=== PATIENT | male | born 1950 | race Caucasian/White ===

== ENCOUNTER → 2021-09-22 11:39 | Outpatient (CLI) | payer MEDICARE, SELFPAY ==
--- NOTE | ~2021-09-22 | XR_ITS ---
EXAMINATION: XR lumbar spine 2-3V DATE: 09/22/2021 12:16 INDICATION: Low back pain. TECHNIQUE: 3 views of lumbar spine were obtained. COMPARISON: Lumbar spine radiographs 02/06/2017 FINDINGS: There is 4 degrees levocurvature of lumbar spine. Vertebral body heights are normal. There is mildly decreased disc height at L2-L3 and L3-L4. There is multilevel mild facet joint osteoarthrit is. IMPRESSION: 1. Mild lumbar spondylosis. Reviewed, dictated and finalized at location A. IANCE ADJUSTER IMPRESSION: 1. Mild lumbar spondylosis.
== END ==
PROVIDERS: PCP Family Medicine Adolescent Medicine; Visit Provider Family Medicine Adolescent Medicine
DX: M54.50 Low back pain, unspecified (principal); M47.816 Spondylosis without myelopathy or radiculopathy, lumbar region
CPT/HCPCS: 72100

== ENCOUNTER 2022-01-04 11:57 | Outpatient (CLI) | payer MEDICARE, SELFPAY ==
--- NOTE | ~2022-01-04 | CT_ITS ---
EXAMINATION: CT abdomen pelvis w con DATE: 01/04/2022 12:45 INDICATION: Prostate cancer. TECHNIQUE: Computed tomography (CT) of the abdomen and pelvis was performed with 100 mL Omnipaque 350 intravenous contrast. Automated exposure control and iterative reconstruction technique were employe d. The dose-length product was 285.93 mGy-cm. COMPARISON: None. FINDINGS: The visualized portions of the lung bases are clear without pneumonia or pleural effusion. The heart size is normal. No pericardial effusion. There is mild pectus excavatum. The liver, gallbla dder, spleen, pancreas, adrenal glands, and right kidney are normal. There is focal volume loss of le ft kidney. There is a 4.9 cm hyperdense mass in left kidney. There is a 3 mm stone in left kidney. Th ere is an umbilical hernia containing fat. There is a right inguinal hernia containing nonobstructed cecum. There is a left inguinal hernia containing nonobstructed sigmoid colon. There are no dilated l oops of bowel. The appendix is normal. There are no pathologically enlarged lymph nodes. There is no free intraperitoneal fluid. The prostate is moderately enlarged. There is moderate lumbar spondylosis . IMPRESSION: 1. No evidence of metastatic disease. 2. 4.9 cm hyperdense mass in left kidney, most likely renal cell carcinoma. Abdomen CT without and wi th contrast is recommended. 3. Right inguinal hernia containing nonobstructed cecum. 4. Left inguinal hernia containing nonobstructed sigmoid colon. Reviewed, dictated and finalized at location A. IMPRESSION: 1. No evidence of metastatic disease. 2. 4.9 cm hyperdense mass in left kidney, most likely renal cell carcinoma. Abd omen CT without and with contrast is recommended. 3. Right inguinal hernia containing nonobstructed cecum. 4. Left inguinal hernia containing nonobstructed sigmoid colon.
--- NOTE | ~2022-01-04 | XR_ITS ---
EXAMINATION: XR chest 2V 01/04/2022 12:23 INDICATION: Prostate cancer. PROCEDURE: 2 view chest COMPARISON: No prior studies for comparison. FINDINGS: The lungs are clear. The cardiomediastinal silhouette is within normal limits. There are no pleural effusions. There is no pneumothorax suspected. Mild dextroscoliosis of the thoracic spin e. Moderate thoracic spondylosis. IMPRESSION: 1: NO ACUTE CARDIOPULMONARY DISEASE. Reviewed, dictated and finalized at location B.
--- NOTE | ~2022-01-04 | NM_ITS ---
EXAMINATION: NM bone scan whole body DATE: 01/04/2022 16:04 INDICATION: Prostate cancer. TECHNIQUE: 24.2 mCi Tc-99m HDP was administered intravenously. Delayed whole-body scintigrams were o btained. COMPARISON: CT abdomen and pelvis 01/04/2022 FINDINGS: There is joint-centered increased activity in the acromioclavicular joints, sternoclavicula r joints, wrists, right hand, and feet without radiographic comparison, likely osteoarthritis. IMPRESSION: 1. No evidence of metastatic disease. Reviewed, dictated and finalized at location A.
[2022-01-04 12:34] LABS: Estimated Glomerular Filt Rate > 60
== END 2022-01-04 11:58 | disposition home or self-care (01) ==
LOC: ANHIMG 12:02
PROVIDERS: PCP Family Medicine Adolescent Medicine; Visit Provider Urology
DX: C61 Malignant neoplasm of prostate (principal); Q67.6 Pectus excavatum; N20.0 Calculus of kidney; K42.9 Umbilical hernia without obstruction or gangrene; K40.90 Unilateral inguinal hernia, without obstruction or gangrene, not specified as recurrent; M41.9 Scoliosis, unspecified; M47.815 Spondylosis without myelopathy or radiculopathy, thoracolumbar region
CPT/HCPCS: 71046; 74177; 78306; A9561; Q9967

== ENCOUNTER 2022-01-13 08:22 | Outpatient (CLI) | payer MEDICARE, SELFPAY ==
--- NOTE | ~2022-01-13 | CT_ITS ---
EXAMINATION: CT abdomen pelvis wo/w con DATE: 01/13/2022 08:48 INDICATION: Neoplasm of uncertain behavior of the left kidney TECHNIQUE: Computed tomography (CT) of the abdomen was performed without intravenous contrast. CT of the abdomen and pelvis was then performed with a total of 100 mL Omnipaque 350 intravenous contrast. The dose-length product (DLP) was 547.46 mGy-cm. Automated exposure control and iterative reconstruct ion technique were employed. COMPARISON: 01/04/2022 FINDINGS: The lung bases are clear. The heart size is normal. The liver, spleen, pancreas, gallbladde r, and adrenal glands are normal. There is a 4.9 cm enhancing mass of the left mid kidney. The mass p rojects into the renal hilum as well as the perirenal space. There is mass effect on calyces of the m id kidney. There is a 3 mm nonobstructing stone of the left kidney upper pole. The right kidney is un remarkable. No pathologically enlarged abdominal or pelvic lymph nodes are identified. There is no fr ee intraperitoneal gas or evidence of bowel obstruction. There is a left inguinal hernia containing a short segment of nonobstructed sigmoid colon. There is a right inguinal hernia which now contains fa t and the right anterolateral bladder wall. The appendix is normal. There is moderate lumbar spondylo sis. There is an umbilical hernia containing fat. IMPRESSION: 1. Left kidney mass consistent with renal cell carcinoma. 2. Bilateral inguinal hernias containing the anterolateral bladder wall on the right and short segmen t of nonobstructed sigmoid colon on the left. Reviewed, dictated and finalized at location B. IMPRESSION: 1. Left kidney mass consistent with renal cell carcinoma. 2. Bilateral inguinal hernias containing the anterolateral bladder wall on the right and short segment of nonobstructed sigmoid colon on the left.
== END 2022-01-13 08:23 | disposition home or self-care (01) ==
PROVIDERS: PCP Family Medicine Adolescent Medicine; Visit Provider Urology
DX: D41.02 Neoplasm of uncertain behavior of left kidney (principal); K40.20 Bilateral inguinal hernia, without obstruction or gangrene, not specified as recurrent
CPT/HCPCS: 74178; Q9967

== ENCOUNTER 2022-03-12 20:31 | Emergency (ER) | payer MEDICARE, SELFPAY ==
--- NOTE | ~2022-03-12 | CT_ITS ---
EXAMINATION: CTA chest PE abdomen pel DATE: 03/12/2022 23:14 INDICATION: shortness of breath TECHNIQUE: Computed tomography angiography (CTA) of the chest, abdomen, and pelvis was performed with 100 mL Omnipaque-350 intravenous contrast timed in the chest to evaluate the pulmonary arteries. Cor onal maximum intensity projection 3D-reconstructions were created by the technologist. The dose-lengt h product (DLP) was 901.77 mGy-cm. Automated exposure control and iterative reconstruction technique were employed. COMPARISON: None. FINDINGS: CTPA: Study quality: Motion limited in the left lower lobe, otherwise adequate. Pulmonary arteries: No pulmonary emboli detected. Thoracic aorta: Minimal atherosclerotic calcification. Lung parenchyma and airways: Bibasilar atelectasis. Thoracic inlet, axillae and chest wall: Unremarkable. Mediastinum: Normal. Heart and pericardium: Normal. Coronary artery calcifications: Mild. Pleura: Unremarkable. Thoracic bones: No acute osseous finding. ABDOMEN/PELVIS: Liver: Normal. Biliary/Gallbladder: Gallbladder is collapsed. No bile duct dilation. Pancreas: No mass or duct dilation. Spleen: Normal. Adrenals:No mass. Kidneys: Moderate left perinephric stranding. Nephrectomy defect. No active extravasation. Fluid fat and gas collection in the nephrectomy bed. GI tract: No small or large bowel dilation. Normal appendix. Mesentery/Peritoneum: Small volume free pelvic fluid. Small volume pneumoperitoneum. Retroperitoneum: No mass. Pelvis: Pelvic organs are within normal limits. Soft Tissues: Anterior abdominal wall postsurgical change. Small umbilical fat-containing hernia. Lar ge left inguinal hernia containing a nondilated loop of large bowel and fat. Moderate sized right ing uinal hernia contains a herniated portion of urinary bladder and fat. Bones: No acute osseous finding. IMPRESSION: No CT evidence of acute pulmonary embolus. Postsurgical changes in the abdomen status post partial le ft nephrectomy. No active extravasation. Residual mass lesion in the left kidney is not excluded. Reviewed, dictated and finalized at location K. IMPRESSION: No CT evidence of acute pulmonary embolus. Postsurgical changes in the abdomen status post partial left nephrectomy. No active extravasation. Residual mass le lit in the left kidney is not excluded.
--- NOTE | ~2022-03-12 | XR_ITS ---
EXAMINATION: XR chest 2V Exam Date/Time: 03/12/2022 20:55 CDT HISTORY: FEVER Comparison: 01/04/2022. RESULT: Lines, tubes, and devices: None. Lungs and pleura: Lower lung volumes with crowding. Cardiomediastinal silhouette: Stable cardiomediastinal silhouette. Other: No acute osseous or upper abdominal finding. IMPRESSION: No acute cardiopulmonary process. Reviewed, dictated and finalized at location K.
[2022-03-12 20:33] VITALS: BP 164/93; PULSE 104; RESP 20; TEMP 37.8; O2SAT 100
--- NOTE | 2022-03-12 20:53 | ED.FEVER ---
HPI - Fever General Chief Complaint: Fever Stated Complaint: fever, post-op Time Seen by Provider: 03/12/22 20:37 Source: patient History of Present Illness HPI Narrative: Patient presents with a fever. Patient had a left partial nephrectomy by Dr. Turk at [facility] for a renal mass. Reports the surgery went well he had no complications was discharged yesterday today he noted a fever reach out to his primary care doctor who directed him to go home COVID test which was negative and then he was referred to the ER for further evaluation. Reports he has had a sore throat and cough since the surgery and thought it was related to his ET tube. Her supports mild pain with urination thought to be related to his Mari catheter during the surgery. He also reports left-sided back pain thought to be typical postop pain. Reports his incision sites are not painful denies congestion or diarrhea. Related Data Home Medications Medication Instructions Recorded Confirmed diclofenac sodium 75 mg 75 mg PO BID 02/11/22 02/14/22 tablet,delayed release Allergies Allergy/AdvReac Type Severity Reaction Status Date / Time No Known Allergies Allergy Verified 02/14/22 10:20 Review of Systems Review of Systems: CONSTITUTIONAL: Denies fever, chills, or sweats. EYES: Denies visual changes, redness, or discharge. ENT: Denies rhinorrhea, congestion, sore throat, or otalgia. CARDIOVASCULAR: Denies chest pain, palpitations, or edema. RESPIRATORY: Reports cough and shortness of breath GASTROINTESTINAL: Denies abdominal pain, nausea, vomiting, or diarrhea. GENITOURINARY: Reports dysuria SKIN: Denies rash or itching. MUSCULOSKELETAL: Denies joint pain, or myalgia. NEUROLOGIC: Denies headache, numbness, dizziness, or weakness. PSYCHIATRIC: Denies anxiety or depression. All systems reviewed & are unremarkable except as noted in HPI and below PMFSH Family History Family History Father Lung cancer Mother Cancer of tonsil Social History Social History Smoking status: Never smoker Second hand tobacco smoke exposure: No Alcohol intake: never Substance use: never Substance use type: does not use Gender identity (if verbalized by the patient): Male Spiritual care concerns: No Agree to blood products: Yes Exam Narrative: GENERAL: Well-appearing, well-nourished, and in no acute distress. HEAD: Normocephalic, atraumatic. EYES: PERRLA and EOMI. ENT: Nares clear, no rhinorrhea or epistaxis. Mucous membranes moist. NECK: Supple. No masses. No JVD CHEST: Clear to auscultation. No respiratory distress. No wheezes rales or rhonchi HEART: Regular rate and rhythm. No murmur heard. Normal peripheral pulses. ABDOMEN: Mild diffuse tenderness surgical wounds are well approximated minimal surrounding erythema nontender no purulent drainage soft, nondistended, normal active bowel sounds. EXTREMITIES: Normal range of motion. No edema. SKIN: Warm, dry, no rash. NEURO: No focal deficits. Alert and oriented x3. PSYCH: Normal mood and affect. Course Reevaluation(s) Reevaluation #1: Patient is resting comfortably work-up thus far reviewed with patient. Work-up thus far is reassuring. We will reach out to patient surgical team. Date: 03/13/22 Time: 00:04 Consultations Consultation #1: Case discussed with Dr. Driscoll urology on-call at [facility]. Work up reviewed with the urology given patient feeling improved work-up is reassuring he is appropriate for continued outpatient. Date: 03/13/22 Time: 01:11 Vital Signs Vital signs: Vital Signs Temperature 37.8 C H 03/12/22 20:33 Pulse Rate 104 H 03/12/22 20:33 Respiratory Rate 20 03/12/22 20:33 Blood Pressure 164/93 H 03/12/22 20:33 Pulse Oximetry 100 03/12/22 20:33 Temperature 37.1 C 03/13/22 01:40 Pulse Rate 86 03/13/22 01:40 Respirato
--- NOTE | 2022-03-12 20:58 | PC.NURSE ---
Pt to XR via stretcher at this time.
[2022-03-12] MEDS: SODIUM CHLORIDE 0.9% IV 1,000 ML 999 ML IV CONT (21:05)
[2022-03-12 21:13] LABS: Basophils Percent Auto 0.2 % (0.2-1.2); Eosinophils Percent Auto 0.2 % (0-4.4); Hematocrit 41.7 % (42.0-52.0); Hemoglobin 13.7 g/dL (14.0-18.0); Immature Granulocyte Absolute 0.03 K/mm3 (0.00-0.031); Immature Granulocyte Percent A 0.3 % (0-0.5); Lymphocytes Percent Auto 6.1 % (18.3-44.2); Mean Corpuscular HGB Conc 32.9 g/dl (32-36); Mean Corpuscular Hemoglobin 28.9 pg (26-34); Mean Platelet Volume 10.1 fl (7.4-10.4); Monocytes Absolute Auto 1.3 K/mm3 (0.1-0.6); Monocytes Percent Auto 10.8 % (2.6-8.5); Neutrophils Absolute Auto 9.5 K/mm3 (1.3-6.7); Neutrophils Percent Auto 82.4 % (45.5-73.1); Platelet Count Result 145 k/mm3 (150-375); Red Blood Count 4.74 M/mm3 (4.6-6.20); Red Cell Distribution Width 12.2 % (11.5-14.5); White Blood Count 11.6 K/mm3 (4.5-10.0)
[2022-03-12 21:22] VITALS: BP 153/75; PULSE 94; RESP 25; O2SAT 97
[2022-03-12 21:24] LABS: Lactic Acid Reflex 1.3 mmol/L (0.7-2.0)
[2022-03-12 21:26] LABS: Appearance Urine Slightly Cloudy (Clear); Bilirubin Urine Negative (Negative); Blood Urine 3+ (Negative); Color Urine Yellow (Yellow); Glucose Urine UA Negative (Negative); Ketones Urine Trace mg/dL (Negative); Leukocyte Esterase Ur Negative LEU/UL (Negative); Nitrate Urine Negative (Negative); Protein Urine 2+ mg/dL (Negative); Specific Grav Ur 1.025 (1.001-1.035); Urobilinogen Urine 0.2 mg/dL (<2.0); pH Urine 5.5 (5.0-9.0)
[2022-03-12 21:29] LABS: INR 1.3; Prothrombin Time 15.4 Seconds (11.1-14.7)
[2022-03-12 21:30] LABS: Partial Thromboplastin Time 35.3 SECONDS (22.3-36.8)
[2022-03-12 21:35] LABS: Add Urine Microscopic? YES; Mucus Urine Rare /lpf; RBC Urine >75 /hpf (0-2); Squamous Epithelial Cell Urine Rare /hpf (Few); WBC Urine 0-3 /hpf
[2022-03-12] MEDS: ACETAMINOPHEN 500 MG TABLET 1000 MG PO (21:40)
[2022-03-12 22:03] LABS: Influenza A QL RT-PCR Negative (Negative); Influenza B QL RT-PCR Negative (Negative); SARS-CoV-2 RNA PCR Negative
[2022-03-12 22:09] VITALS: BP 159/84; PULSE 90; RESP 20; TEMP 37.6; O2SAT 97
[2022-03-12 22:31] LABS: Alanine Aminotransferase 22 U/L (6-50); Albumin Level 3.9 g/dL (3.5-5.1); Alkaline Phosphatase 69 U/L (38-126); Anion Gap 5 mmol/L (8-16); Aspartate Amino Transferase 46 U/L (17-59); Bilirubin,Total 0.8 mg/dL (0.2-1.3); Blood Urea Nitrogen 21 mg/dL (9-20); Calcium 8.1 mg/dL (8.4-10.2); Carbon Dioxide 24 mmol/L (22-30); Chloride 107 mmol/L (98-107); Estimated CRCL calculation 47 ml/min; Estimated Glomerular Filt Rate 54; Glucose 135 mg/dL (65-110); Potassium 3.9 mmol/L (3.4-5.0); Sodium 136 mmol/L (137-145)
--- NOTE | 2022-03-12 22:54 | PC.NURSE ---
Pt to CT via stretcher at this time.
[2022-03-12 23:22] VITALS: BP 148/93; PULSE 87; RESP 18; O2SAT 96
[2022-03-13 00:59] VITALS: BP 134/80; PULSE 80; RESP 20; O2SAT 96
[2022-03-13 01:40] VITALS: BP 165/83; PULSE 86; RESP 18; TEMP 37.1; O2SAT 98
== END 2022-03-13 01:35 | disposition home or self-care (01) ==
PROVIDERS: Emergency Provider Emergency Medicine; PCP Family Medicine Adolescent Medicine
DX: R50.9 Fever, unspecified (principal); R05.9 Cough, unspecified; M54.9 Dorsalgia, unspecified; Z20.822 Contact with and (suspected) exposure to COVID-19; Z90.5 Acquired absence of kidney; Z98.890 Other specified postprocedural states
CPT/HCPCS: 36415; 71046; 71275; 74177; 80053; 81001; 83605; 85025; 85610; 85730; 86140; 87040; 87502; 96360; 99284; A9270; C9803; J7030; Q9967; U0003; U0005

== ENCOUNTER → 2022-11-14 15:16 | Outpatient (CLI) | payer MEDICARE, SELFPAY ==
--- NOTE | ~2022-11-14 | CT_ITS ---
CT of the Abdomen and Pelvis: Indication: Benign neoplasm left kidney Technique: Axial scans were obtained through the abdomen and pelvis prior to and following intravenou s administration of 100 cc of Omnipaque 350. Dose reduction technique was used on this scan by utiliz ing automated exposure control and iterative reconstruction technique. The dose-length product (DLP) was 699.04 mGy-cm. COMPARISON: 03/12/2022 Findings: Scans through the lung bases are unremarkable. The liver, spleen, pancreas, gallbladder, adrenals and right kidney are within normal limits. There i s small low density masslike lesion at the lower pole the left kidney, at the site of the previously noted large solid mass, with probable adjacent suture line, likely representing small postoperative s eroma or other benign postsurgical change. No evidence of aortic aneurysm. No lymphadenopathy. No bowel obstruction or bowel wall thickening. There is no evidence to suggest acute appendicitis. Sm all fat-containing umbilical hernia noted. Images through the pelvis were performed. Right inguinal hernia contains fat and a small portion of t he urinary bladder. Fat-containing left inguinal hernia also present. Prostate gland unremarkable. Impression: Probable postsurgical change of the left kidney, as noted above. No distinctly suspicious/enhancing r esidual mass evident. Continued follow-up advised. Moderate sized fat-containing right inguinal hernia which also contains a small portion of the urinar y bladder. Moderate fat-containing left inguinal hernia. Reviewed, dictated and finalized at location . EDGER Impression: Probable postsurgical change of the left kidney, as noted above. No distinctly suspicious/enhancing residual mass evident. Continued follow-up advised. Moderate sized fat-containing right inguinal hernia which also contains a small portion of the urinary bladder. Moderate fat-containing left inguinal hernia.
--- NOTE | ~2022-11-14 | XR_ITS ---
EXAMINATION: XR chest 2V Exam Date/Time: 11/14/2022 15:25 DIGITAL STRATEGIST HISTORY: renal oncocytoma of left kidney Comparison: 03/12/2022, CTPA 03/12/2022. RESULT: Lines, tubes, and devices: None. Lungs and pleura: Mild senescent change. Left basilar scar/atelectasis.. Cardiomediastinal silhouette: Stable. Other: No acute osseous or upper abdominal finding. IMPRESSION: No acute cardiopulmonary process. Reviewed, dictated and finalized at location K. TAL STRATEGIST
[2022-11-14 15:42] LABS: Estimated Glomerular Filt Rate > 60
== END ==
PROVIDERS: PCP Family Medicine Adolescent Medicine; Visit Provider Urology
DX: D30.02 Benign neoplasm of left kidney (principal); K40.20 Bilateral inguinal hernia, without obstruction or gangrene, not specified as recurrent
CPT/HCPCS: 71046; 74178; Q9967

== ENCOUNTER → 2023-10-12 13:00 | Outpatient (CLI) | payer MEDICARE, SELFPAY ==
--- NOTE | ~2023-10-12 | DEXA_ITS ---
Bone Density Report Name: BRETT VICK Age: 73 Sex: Male Ethnicity: White Date of : 1950 Indication: screening for osteoporosis; parental hip fracture; cancer; Referring Provider: BHAVIN FARNSWORTH Study: Bone densitometry was performed. Exam Date: October 12, 2023 Accession number: [id number] Bone Density: Region BMD T-score Z-score Classification AP Spine (L1-L4) 1.059 -0.3 0.7 Normal Femoral Neck (Left) 0.656 -2.0 -0.7 Osteopenia Total Hip (Left) 0.938 -0.6 0.1 Normal Femoral Neck (Right) 0.710 -1.6 -0.3 Osteopenia Total Hip (Right) 0.913 -0.8 0.0 Normal Total Hip Mean 0.926 -0.7 0.1 Normal World Health Organization criteria for BMD impression classify patients as: Normal (T-score at or above -1.0), Osteopenia (T-score between -1.0 and -2.5), or Osteoporosis (T-score at or below -2.5). 10-year Fracture Risk(1): Major Osteoporotic Fracture 16% Hip Fracture 9.1% Reported Risk Factors: [place] (), Neck BMD=0.656, BMI=25.1, parental fracture (1) FRAX(R) Version 3.08. Fracture probability calculated for an untreated patient. Fracture probability may be lower if the patient has received treatment. Clinical Information Provided by Patient: Parent has had a hip fracture Has used the following medications: Calcium, MTV, ORGOVYX Has the following medical conditions: Cancer, PROSTATE CANCER Patient maximum height was 69 Does not regularly consume dairy products Drinks caffeinated beverages Impression: The patient has low bone mass, based on the Left Femoral Neck T-score. The patient has an estimated ten-year risk of hip fracture of 9.1% and an estimated ten-year risk of major fracture of 16%, based on the WHO FRAX algorithm. The patient has risk factors, including: parental hip fracture. Discussion: BONE DENSITY IS LOW AT ONE OR MORE SKELETAL SITES. THE PATIENT'S BMD AND CLINICAL RISK FACTORS CONTRIBUTE TO THIS PATIENT'S INCREASED RISK OF FRACTURE. This patient's lowest T-score is low at one or more skeletal sites. It meets the World Health Organization's (WHO) criteria for ?low bone mass? (T-score between -1.0 and -2.5). The patient's 10-year risk of hip fracture as calculated by FRAX exceeds the threshold where pharmacological therapy is recommended by the National Osteoporosis Foundation (NOF). However, all treatment decisions require clinical judgment and consideration of individual patient factors, including patient preferences, comorbidities, previous drug use, risk factors not captured in the FRAX model (e.g., frailty, falls, vitamin D deficiency, increased bone turnover, interval significant decline in bone density) and possible under or overestimation of fracture risk by FRAX. The patient should follow a healthful lifestyle (good nutrition with adequate calcium and vitamin D
== END ==
PROVIDERS: PCP Family Medicine Adolescent Medicine; Visit Provider Family Medicine Adolescent Medicine
DX: M85.88 Other specified disorders of bone density and structure, other site (principal)
CPT/HCPCS: 77080

== ENCOUNTER 2025-09-05 13:26 | Outpatient (CLI) | payer MEDICARE, SELFPAY ==
--- NOTE | ~2025-09-05 | CT_ITS ---
EXAM/PROCEDURE: CT abdomen pelvis wo con HISTORY: renal oncoytoma COMPARISON: None available. TECHNIQUE: November 14, 2022 FINDINGS: The bowel gas pattern is nonobstructive with no free air free fluid or pneumatosis seen. Postsurgical changes of the left kidney with no gross evidence of recurrent or malignant disease seen. Normal size gallbladder and aorta. No grossly inflamed appendix. Urinary bladder is nondistended with partial herniation into moderate size right-sided inguinal hernia. No loops of bowel herniated on the right side. Moderate to large left inguinal hernia which contains prominent loop of large bowel with no obvious acute complication. Liver spleen stomach and adrenal glands pancreas appear stable for technique. Lung bases clear. Bones intact. IMPRESSION: 1. Directed noncontrast CT with no gross evidence malignant or metastatic disease. Postsurgical changes in the left kidney appear stable. 2. Moderate to large left inguinal hernia contains a prominent loop of large bowel with no obvious acute complications. Smaller, moderate-sized right inguinal hernia contains omentum and a portion of the urinary bladder. Reviewed, dictated and finalized at location A. TYPE CASTER IMPRESSION: 1. Directed noncontrast CT with no gross evidence malignant or metastatic disea se. Postsurgical changes in the left kidney appear stable. 2. Moderate to large left inguinal hernia contains a prominent loop of large cat wel with no obvious acute complications. Smaller, moderate-sized right inguinal hernia contains omentum and a portion of the urinary bladder.
--- OUTSIDE RECORDS SUMMARY | 2025-09-05 17:46 | XMS_ITS | Clinical Summary ---
Author Organization [facility] Address [address] [place] [id number] Care Team Providers Care Brick Or Block Maker Name Role Phone Joaquin Albrecht MD Primary Care Provider [phone] Social History Tobacco Use Types Packs/Day Years Used Date Smoking Tobacco: Never Assessed Sex and Gender Information Value Date Recorded Sex Assigned at Not on file Legal Sex Male 2:29 PM CDT Gender Identity Not on file Sexual Orientation Not on file Plan of Treatment Health Maintenance Due Date Last Done Comments Colorectal Cancer Screening Colonoscopy (10 Years) 1950 Hepatitis C 1968 Pneumococcal Vaccine: 50+ Years (1 of 1 - PCV) 2000 Annual Medicare Wellness Visit 2015 Zoster Vaccines (2 of 2) 11/25/2021 09/30/2021 RSV Immunization or 60+ Years (1 - 1-dose 75+ series) 2025 COVID-19 Vaccine (4 - 2024-2 6 season) 2025 09/10/2021, 01/11/2021, 12/10/2020 Influenza Adult (#1) 2025 DTaP, Tdap and Td Vaccines ( 2 - Td or Tdap) 03/22/2029 03/22/2019 Hepatitis A Vaccines Aged Out No long er eligible based on patient's age to complete this topic Meningococcal B Vaccine Aged Out No l onger eligible based on patient's age to complete this topic Meningococcal Vaccine Aged Out No renee tammy eligible based on patient's age to complete this topic RSV Immunizations Under 20 Months Aged Out No longer eligible b ased on patient's age to complete this topic Insurance AETNA MEDICARE Care Teams Brick Or Block Maker Relationship Specialty Start Date End Date Joaquin Albrecht MD [phone] [id number] PCP - General FAMILY PRACTICE 07/06/22
== END 2025-09-05 13:27 | disposition home or self-care (01) ==
PROVIDERS: PCP Family Medicine Adolescent Medicine; Visit Provider Urology
DX: K40.20 Bilateral inguinal hernia, without obstruction or gangrene, not specified as recurrent (principal); D30.02 Benign neoplasm of left kidney
CPT/HCPCS: 74176